=== PATIENT | male | born 1940 | race African-American/Black ===

== ENCOUNTER 2020-08-27 17:49 | Emergency (ER) | payer MEDICARE ==
[2020-08-27 19:13] LABS: Bilirubin Neg (Negative); Blood, Urine 10 (Negative); Glucose, Urine (Dipstick) 250 mg/dL (Negative); Ketone, Urine Negative (Negative); Leukocyte Negative (Negative); Nitrite Negative (Negative); Protein, Urine (Dipstick) 100 mg/dl (Neg-Trace); Urobilinogen Normal mg/dL (Less than 2)
[2020-08-27 19:17] LABS: Clarity Clear (Clear)
[2020-08-27 19:37] LABS: Bacteria/HPF Rare-Few HPF (None Seen); RBC/HPF 0-3 HPF (0-3); Squamous Epithelial 0-3 HPF (0-3); WBC/HPF 0-3 HPF (0-3)
[2020-08-27] MEDS ORDERED: Morphine 2 MG/ML VIAL ONE (20:13)
[2020-08-27 20:29] LABS: #Eosinphils 0.2 10x3/uL (0.0-0.5); #Monocytes 0.1 10x3/uL (0.0-1.1); #Neutrophils 3.7 10x3/uL (1.5-8.4); %Basophils 0.4 % (0.0-2.0); %Eosinophils 3.9 % (0.0-6.0); %Lymphocytes 24.4 % (18.0-47.0); %Monocytes 2.6 % (0.0-10.0); %Neutrophils 68.3 % (40.0-75.0); Hemoglobin 9.1 g/dL (13.5-17.5); Mean Corpuscular Hemoglobin 37.3 pg (27.0-33.0); Mean Corpuscular Volume 109.8 fl (81.2-95.1); Mean Platelet Volume 9.8 fl (7.4-10.4); Platelet Count 178 10x3/uL (150-450); RBC Distribution Width 13.2 % (11.5-14.5); Red Blood Cell (RBC) Count 2.44 10x6/uL (4.32-5.72); White Blood Cell (WBC) Count 5.4 10x3/uL (3.5-10.5)
[2020-08-27 20:33] LABS: ALT (SGPT) 8 U/L (8-55); AST (SGOT) 14 U/L (5-34); Albumin 4.3 g/dL (3.4-4.8); Alkaline Phosphatase 92 U/L (40-110); Anion Gap 14 mmol/L (10-20); BUN (Urea Nitrogen) 42 mg/dL (8.4-25.7); Bilirubin, Total 0.4 mg/dL (0.2-1.2); Calc. Creatinine Clearance 0 mL/min (70-130); Calcium 9.1 mg/dL (7.8-10.44); Carbon Dioxide 20 mmol/L (23-31); Chloride 111 mmol/L (98-107); Globulin 3.2 g/dL (2.4-3.5); Glucose 193 mg/dL (83-110); Lipase 41 U/L (8-78); Potassium 4.4 mmol/L (3.5-5.1); Protein, Total 7.5 g/dL (5.8-8.1); Sodium 141 mmol/L (136-145)
== END 2020-08-27 21:20 | disposition home or self-care (01) ==
LOC: CSHERS 17:49
DX: R10.9 Unspecified abdominal pain (principal); R11.10 Vomiting, unspecified; I11.0 Hypertensive heart disease with heart failure; I50.9 Heart failure, unspecified; E78.00 Pure hypercholesterolemia, unspecified; E11.9 Type 2 diabetes mellitus without complications; H40.9 Unspecified glaucoma; F17.200 Nicotine dependence, unspecified, uncomplicated
CPT/HCPCS: 74176; 80053; 83690; 85025; 87086; 96374; 99284; J2270; 81003; 81015

== ENCOUNTER 2021-05-16 09:51 | Inpatient (IN) | payer MEDICARE ==
[2021-05-16] MEDS ORDERED: Ondansetron PF 4 MG/2 ML Vial ONE (10:22)
[2021-05-16 10:30] LABS: #Eosinphils 0.1 10x3/uL (0.0-0.5); #Monocytes 0.6 10x3/uL (0.0-1.1); #Neutrophils 6.1 10x3/uL (1.5-8.4); %Basophils 0.1 % (0.0-2.0); %Eosinophils 1.3 % (0.0-6.0); %Lymphocytes 18.2 % (18.0-47.0); %Monocytes 6.8 % (0.0-10.0); %Neutrophils 73.2 % (40.0-75.0); Hemoglobin 13.1 g/dL (13.5-17.5); Mean Corpuscular HGB CONC 32.9 g/dL (32.0-36.0); Mean Corpuscular Hemoglobin 30.2 pg (27.0-33.0); Mean Corpuscular Volume 91.7 fl (81.2-95.1); Mean Platelet Volume 9.8 fl (7.4-10.4); Platelet Count 158 10x3/uL (150-450); RBC Distribution Width 13.5 % (11.5-14.5); Red Blood Cell (RBC) Count 4.34 10x6/uL (4.32-5.72); White Blood Cell (WBC) Count 8.3 10x3/uL (3.5-10.5)
[2021-05-16] MEDS ORDERED: Acetaminophen 500 MG TAB ONE (10:46)
[2021-05-16 11:27] LABS: ALT (SGPT) 13 U/L (8-55); AST (SGOT) 20 U/L (5-34); Albumin 4.5 g/dL (3.4-4.8); Alkaline Phosphatase 87 U/L (40-110); Anion Gap 16 mmol/L (10-20); BUN (Urea Nitrogen) 20 mg/dL (8.4-25.7); Calc. Creatinine Clearance 0 mL/min (70-130); Calcium 9.4 mg/dL (7.8-10.44); Carbon Dioxide 27 mmol/L (23-31); Chloride 98 mmol/L (98-107); Globulin 3.6 g/dL (2.4-3.5); Glucose 147 mg/dL (83-110); Lipase 46 U/L (8-78); Potassium 4.1 mmol/L (3.5-5.1); Protein, Total 8.1 g/dL (5.8-8.1); Sodium 137 mmol/L (136-145)
[2021-05-16 16:20] VITALS: BMI 34.4
[2021-05-16] MEDS ORDERED: Ondansetron PF 4 MG/2 ML Vial IVP PRN (16:40)
[2021-05-16 17:40] LABS: SARS-CoV-2 NAA Rapid Test Not Detected (NotDetected)
[2021-05-16] MEDS: Sodium Chloride 0.9% 1,000 ML IV SCH (18:08)
[2021-05-16] MEDS ORDERED: Dextrose 5% in Water 1,000 ML IV PRN (18:24)
[2021-05-16] MEDS ORDERED: Dextrose 50% Abboject 50 ML SYRINGE SLOW IVP PRN (18:24)
[2021-05-16] MEDS ORDERED: DorzolamidE/Timolol 2%/0.5% Ophth Soln 10 ml Bottle EA EYE SCH (21:00)
[2021-05-16] MEDS: Heparin 5,000 UNITS/ML VIAL SC SCH (21:07)
[2021-05-16] MEDS: hydrALAZINE 20 MG/ML VIAL SLOW IVP PRN (21:07)
[2021-05-16] MEDS: Acetaminophen 650 MG Suppository PR PRN (21:55)
[2021-05-16] MEDS: Latanoprost 0.005% Ophth Soln 2.5 ml Bottle EA EYE SCH (23:54)
[2021-05-17] MEDS: Brimonidine Tartrate 0.2% Ophth Soln 5 ml Bottle EA EYE SCH ×3 (00:01→21:46)
[2021-05-17] MEDS: Dorzolamide HCl 2% Ophth Soln 10 ml Bottle EA EYE SCH ×3 (00:08→21:55)
[2021-05-17 04:35] LABS: #Eosinphils 0.1 10x3/uL (0.0-0.5); #Monocytes 0.8 10x3/uL (0.0-1.1); #Neutrophils 5.8 10x3/uL (1.5-8.4); %Basophils 0.2 % (0.0-2.0); %Eosinophils 1.2 % (0.0-6.0); %Lymphocytes 16.8 % (18.0-47.0); %Monocytes 10.1 % (0.0-10.0); %Neutrophils 71.3 % (40.0-75.0); Hemoglobin 11.9 g/dL (13.5-17.5); Mean Corpuscular HGB CONC 32.4 g/dL (32.0-36.0); Mean Corpuscular Hemoglobin 30.4 pg (27.0-33.0); Mean Corpuscular Volume 93.6 fl (81.2-95.1); Platelet Count 152 10x3/uL (150-450); RBC Distribution Width 13.3 % (11.5-14.5); Red Blood Cell (RBC) Count 3.92 10x6/uL (4.32-5.72); White Blood Cell (WBC) Count 8.1 10x3/uL (3.5-10.5)
[2021-05-17 04:53] LABS: Anion Gap 16 mmol/L (10-20); BUN (Urea Nitrogen) 35 mg/dL (8.4-25.7); Calc. Creatinine Clearance 17 mL/min (70-130); Calcium 8.6 mg/dL (7.8-10.44); Carbon Dioxide 24 mmol/L (23-31); Chloride 102 mmol/L (98-107); Glucose 123 mg/dL (83-110); Phosphorus 4.9 mg/dL (2.3-4.7); Sodium 138 mmol/L (136-145)
[2021-05-17] MEDS ORDERED: Sodium Chloride 0.9% 1,000 ML ONE (09:21)
[2021-05-17] MEDS: Heparin 5,000 UNITS/ML VIAL SC SCH ×3 (09:30→21:56)
[2021-05-17] MEDS: Pantoprazole 40 MG VIAL IVP SCH (09:30)
[2021-05-17] MEDS: hydrALAZINE 20 MG/ML VIAL SLOW IVP PRN ×2 (09:31→15:24)
[2021-05-17] MEDS: Sodium Chloride 0.9% 1,000 ML IV SCH (09:31)
[2021-05-17] MEDS: Timolol 0.5% Ophth Soln 5 ml Bottle EA EYE SCH ×2 (09:32→21:55)
[2021-05-17] MEDS: Latanoprost 0.005% Ophth Soln 2.5 ml Bottle EA EYE SCH (21:55)
[2021-05-18] MEDS: Sodium Chloride 0.9% 1,000 ML IV SCH ×2 (03:44→18:42)
[2021-05-18 03:51] LABS: #Eosinphils 0.1 10x3/uL (0.0-0.5); #Monocytes 0.5 10x3/uL (0.0-1.1); #Neutrophils 3.9 10x3/uL (1.5-8.4); %Basophils 0.2 % (0.0-2.0); %Eosinophils 2.4 % (0.0-6.0); %Lymphocytes 21.5 % (18.0-47.0); %Monocytes 8.9 % (0.0-10.0); %Neutrophils 66.8 % (40.0-75.0); Hemoglobin 11.2 g/dL (13.5-17.5); Mean Corpuscular HGB CONC 32.8 g/dL (32.0-36.0); Mean Corpuscular Hemoglobin 30.5 pg (27.0-33.0); Mean Corpuscular Volume 92.9 fl (81.2-95.1); Mean Platelet Volume 9.9 fl (7.4-10.4); Platelet Count 148 10x3/uL (150-450); RBC Distribution Width 13.2 % (11.5-14.5); Red Blood Cell (RBC) Count 3.67 10x6/uL (4.32-5.72); White Blood Cell (WBC) Count 5.8 10x3/uL (3.5-10.5)
[2021-05-18] MEDS: hydrALAZINE 20 MG/ML VIAL SLOW IVP PRN (03:55)
[2021-05-18 04:03] LABS: Anion Gap 13 mmol/L (10-20); BUN (Urea Nitrogen) 45 mg/dL (8.4-25.7); Calc. Creatinine Clearance 16 mL/min (70-130); Calcium 8.4 mg/dL (7.8-10.44); Carbon Dioxide 24 mmol/L (23-31); Chloride 105 mmol/L (98-107); Glucose 138 mg/dL (83-110); Potassium 3.8 mmol/L (3.5-5.1); Sodium 138 mmol/L (136-145)
[2021-05-18] MEDS: Pantoprazole 40 MG VIAL IVP SCH (09:06)
[2021-05-18] MEDS: Heparin 5,000 UNITS/ML VIAL SC SCH ×3 (09:06→21:42)
[2021-05-18] MEDS: Acetaminophen 650 MG Suppository PR PRN (10:08)
[2021-05-18] MEDS: Dorzolamide HCl 2% Ophth Soln 10 ml Bottle EA EYE SCH ×2 (13:08→21:41)
[2021-05-18] MEDS: Brimonidine Tartrate 0.2% Ophth Soln 5 ml Bottle EA EYE SCH ×2 (13:08→21:40)
[2021-05-18] MEDS: Timolol 0.5% Ophth Soln 5 ml Bottle EA EYE SCH ×2 (13:09→21:41)
[2021-05-18] MEDS: Latanoprost 0.005% Ophth Soln 2.5 ml Bottle EA EYE SCH (21:42)
[2021-05-18] MEDS ORDERED: Cefepime 1 GM in Sodium Chloride 0.9% 100 ML IVPB SCH (23:15)
[2021-05-19 03:56] LABS: #Eosinphils 0.2 10x3/uL (0.0-0.5); #Neutrophils 4.8 10x3/uL (1.5-8.4); %Basophils 0.4 % (0.0-2.0); %Eosinophils 2.5 % (0.0-6.0); %Lymphocytes 22.3 % (18.0-47.0); %Monocytes 12.8 % (0.0-10.0); %Neutrophils 61.9 % (40.0-75.0); Mean Corpuscular HGB CONC 31.7 g/dL (32.0-36.0); Mean Corpuscular Hemoglobin 29.7 pg (27.0-33.0); Mean Corpuscular Volume 93.5 fl (81.2-95.1); Mean Platelet Volume 10.2 fl (7.4-10.4); Platelet Count 130 10x3/uL (150-450); RBC Distribution Width 13.2 % (11.5-14.5); Red Blood Cell (RBC) Count 3.37 10x6/uL (4.32-5.72); White Blood Cell (WBC) Count 7.7 10x3/uL (3.5-10.5)
[2021-05-19 04:08] LABS: Anion Gap 12 mmol/L (10-20); BUN (Urea Nitrogen) 31 mg/dL (8.4-25.7); Calc. Creatinine Clearance 20 mL/min (70-130); Calcium 8.2 mg/dL (7.8-10.44); Carbon Dioxide 26 mmol/L (23-31); Chloride 103 mmol/L (98-107); Glucose 116 mg/dL (83-110); Potassium 3.7 mmol/L (3.5-5.1); Sodium 137 mmol/L (136-145)
[2021-05-19] MEDS ORDERED: Ferrous Sulfate 325 MG TAB PO SCH (08:30)
[2021-05-19] MEDS: Brimonidine Tartrate 0.2% Ophth Soln 5 ml Bottle EA EYE SCH ×2 (08:34→21:26)
[2021-05-19] MEDS: Heparin 5,000 UNITS/ML VIAL SC SCH ×3 (08:35→21:26)
[2021-05-19] MEDS: Dorzolamide HCl 2% Ophth Soln 10 ml Bottle EA EYE SCH ×2 (08:35→21:26)
[2021-05-19] MEDS: Pantoprazole 40 MG VIAL IVP SCH (08:35)
[2021-05-19] MEDS: Timolol 0.5% Ophth Soln 5 ml Bottle EA EYE SCH ×2 (08:35→21:26)
[2021-05-19] MEDS: Sodium Chloride 0.9% 1,000 ML IV SCH (15:20)
[2021-05-19] MEDS: Ferrous Sulfate 325 MG TAB PO SCH (17:02)
[2021-05-19] MEDS: Latanoprost 0.005% Ophth Soln 2.5 ml Bottle EA EYE SCH (21:26)
[2021-05-19] MEDS ORDERED: Cefepime 0.5 GM in Sodium Chloride 0.9% 100 ML IVPB ONE (23:40)
[2021-05-19] MEDS: CEFEPIME IVPB SCH (23:40)
[2021-05-19] MEDS: ADMIXTURE FEE IVPB SCH (23:40)
[2021-05-19] MEDS: SODIUM CHLORIDE IVPB SCH (23:40)
[2021-05-20] MEDS: Sodium Chloride 0.9% 1,000 ML IV SCH (03:00)
[2021-05-20] MEDS: Acetaminophen 325 MG TAB PO PRN (04:27)
[2021-05-20] MEDS: hydrALAZINE 20 MG/ML VIAL SLOW IVP PRN ×2 (04:36→21:53)
[2021-05-20 05:48] LABS: #Eosinphils 0.2 10x3/uL (0.0-0.5); #Monocytes 0.6 10x3/uL (0.0-1.1); #Neutrophils 3.7 10x3/uL (1.5-8.4); %Basophils 0.5 % (0.0-2.0); %Eosinophils 3.4 % (0.0-6.0); %Lymphocytes 25.7 % (18.0-47.0); %Monocytes 9.9 % (0.0-10.0); %Neutrophils 60.2 % (40.0-75.0); Hemoglobin 11.1 g/dL (13.5-17.5); Mean Corpuscular HGB CONC 33.2 g/dL (32.0-36.0); Mean Corpuscular Hemoglobin 30.1 pg (27.0-33.0); Mean Corpuscular Volume 90.5 fl (81.2-95.1); Mean Platelet Volume 10.4 fl (7.4-10.4); Platelet Count 153 10x3/uL (150-450); RBC Distribution Width 12.9 % (11.5-14.5); Red Blood Cell (RBC) Count 3.69 10x6/uL (4.32-5.72); White Blood Cell (WBC) Count 6.2 10x3/uL (3.5-10.5)
[2021-05-20 05:55] LABS: Anion Gap 14 mmol/L (10-20); BUN (Urea Nitrogen) 36 mg/dL (8.4-25.7); Calc. Creatinine Clearance 21 mL/min (70-130); Calcium 8.5 mg/dL (7.8-10.44); Carbon Dioxide 22 mmol/L (23-31); Chloride 104 mmol/L (98-107); Glucose 130 mg/dL (83-110); Potassium 3.6 mmol/L (3.5-5.1); Sodium 136 mmol/L (136-145)
[2021-05-20] MEDS ORDERED: hydrALAZINE 25 MG TAB PO SCH (07:00)
[2021-05-20] MEDS ORDERED: NIFEdipine XL 30 MG TAB PO SCH (09:00)
[2021-05-20] MEDS: Heparin 5,000 UNITS/ML VIAL SC SCH ×3 (09:47→21:53)
[2021-05-20] MEDS: Dorzolamide HCl 2% Ophth Soln 10 ml Bottle EA EYE SCH ×2 (09:47→21:54)
[2021-05-20] MEDS: Pantoprazole 40 MG VIAL IVP SCH (09:47)
[2021-05-20] MEDS: Ferrous Sulfate 325 MG TAB PO SCH ×2 (09:47→17:25)
[2021-05-20] MEDS: Timolol 0.5% Ophth Soln 5 ml Bottle EA EYE SCH ×2 (09:48→21:54)
[2021-05-20] MEDS: Brimonidine Tartrate 0.2% Ophth Soln 5 ml Bottle EA EYE SCH ×2 (09:48→21:54)
[2021-05-20] MEDS: Latanoprost 0.005% Ophth Soln 2.5 ml Bottle EA EYE SCH (21:55)
[2021-05-20 22:54] LABS: Bilirubin Neg (Negative); Blood, Urine Negative (Negative); Clarity Clear (Clear); Glucose, Urine (Dipstick) Normal (Negative); Ketone, Urine Negative (Negative); Leukocyte Negative (Negative); Nitrite Negative (Negative); Protein, Urine (Dipstick) 100 mg/dl (Neg-Trace); Urobilinogen Normal mg/dL (Less than 2)
[2021-05-20 22:58] LABS: Urine Culture Reflex No No
[2021-05-20] MEDS: SODIUM CHLORIDE IVPB SCH (23:10)
[2021-05-20] MEDS: ADMIXTURE FEE IVPB SCH (23:10)
[2021-05-20] MEDS ORDERED: Cefepime 0.5 GM in Sodium Chloride 0.9% 100 ML IVPB ONE (23:10)
[2021-05-20] MEDS: CEFEPIME IVPB SCH (23:10)
[2021-05-20 23:16] LABS: Bacteria/HPF None Seen HPF (None Seen); RBC/HPF None Seen HPF (0-3); Squamous Epithelial None Seen HPF (0-3); WBC/HPF 0-3 HPF (0-3)
[2021-05-21 04:40] LABS: #Eosinphils 0.1 10x3/uL (0.0-0.5); #Monocytes 0.6 10x3/uL (0.0-1.1); #Neutrophils 2.3 10x3/uL (1.5-8.4); %Basophils 0.5 % (0.0-2.0); %Eosinophils 1.7 % (0.0-6.0); %Lymphocytes 26.8 % (18.0-47.0); %Monocytes 13.6 % (0.0-10.0); %Neutrophils 57.2 % (40.0-75.0); Hemoglobin 10.5 g/dL (13.5-17.5); Mean Corpuscular HGB CONC 33.3 g/dL (32.0-36.0); Mean Platelet Volume 10.4 fl (7.4-10.4); Platelet Count 155 10x3/uL (150-450); RBC Distribution Width 13.1 % (11.5-14.5)
[2021-05-21 04:59] LABS: Anion Gap 12 mmol/L (10-20); BUN (Urea Nitrogen) 35 mg/dL (8.4-25.7); Calc. Creatinine Clearance 21 mL/min (70-130); Calcium 8.3 mg/dL (7.8-10.44); Carbon Dioxide 22 mmol/L (23-31); Chloride 107 mmol/L (98-107); Glucose 113 mg/dL (83-110); Potassium 3.7 mmol/L (3.5-5.1); Sodium 137 mmol/L (136-145)
[2021-05-21] MEDS: hydrALAZINE 20 MG/ML VIAL SLOW IVP PRN (05:15)
[2021-05-21] MEDS: Heparin 5,000 UNITS/ML VIAL SC SCH ×3 (09:44→22:23)
[2021-05-21] MEDS: Pantoprazole 40 MG VIAL IVP SCH (09:44)
[2021-05-21] MEDS: Brimonidine Tartrate 0.2% Ophth Soln 5 ml Bottle EA EYE SCH ×2 (09:45→22:21)
[2021-05-21] MEDS: Ferrous Sulfate 325 MG TAB PO SCH ×2 (09:45→16:40)
[2021-05-21] MEDS: Timolol 0.5% Ophth Soln 5 ml Bottle EA EYE SCH ×2 (09:45→22:22)
[2021-05-21] MEDS: NIFEdipine XL 30 MG TAB PO SCH (09:45)
[2021-05-21] MEDS: Dorzolamide HCl 2% Ophth Soln 10 ml Bottle EA EYE SCH ×2 (09:46→22:22)
[2021-05-21] MEDS: Acetaminophen 325 MG TAB PO PRN (16:40)
[2021-05-21] MEDS: Sodium Chloride 0.9% 1,000 ML IV SCH (16:59)
[2021-05-21] MEDS: Latanoprost 0.005% Ophth Soln 2.5 ml Bottle EA EYE SCH (22:22)
[2021-05-22] MEDS: ADMIXTURE FEE IVPB SCH (00:33)
[2021-05-22] MEDS: CEFEPIME IVPB SCH (00:33)
[2021-05-22] MEDS: SODIUM CHLORIDE IVPB SCH (00:33)
[2021-05-22 05:45] LABS: #Eosinphils 0.1 10x3/uL (0.0-0.5); #Monocytes 0.6 10x3/uL (0.0-1.1); #Neutrophils 1.9 10x3/uL (1.5-8.4); %Basophils 0.7 % (0.0-2.0); %Eosinophils 1.2 % (0.0-6.0); %Monocytes 14.1 % (0.0-10.0); %Neutrophils 45.8 % (40.0-75.0); Hemoglobin 11.2 g/dL (13.5-17.5); Mean Corpuscular HGB CONC 32.6 g/dL (32.0-36.0); Mean Corpuscular Hemoglobin 29.6 pg (27.0-33.0); Mean Corpuscular Volume 90.8 fl (81.2-95.1); Mean Platelet Volume 10.1 fl (7.4-10.4); Platelet Count 135 10x3/uL (150-450); RBC Distribution Width 13.2 % (11.5-14.5); Red Blood Cell (RBC) Count 3.79 10x6/uL (4.32-5.72); White Blood Cell (WBC) Count 4.1 10x3/uL (3.5-10.5)
[2021-05-22 05:59] LABS: Anion Gap 14 mmol/L (10-20); BUN (Urea Nitrogen) 23 mg/dL (8.4-25.7); Calc. Creatinine Clearance 25 mL/min (70-130); Calcium 8.4 mg/dL (7.8-10.44); Carbon Dioxide 23 mmol/L (23-31); Chloride 103 mmol/L (98-107); Glucose 107 mg/dL (83-110); Potassium 3.8 mmol/L (3.5-5.1); Sodium 136 mmol/L (136-145)
[2021-05-22] MEDS: NIFEdipine XL 30 MG TAB PO SCH (06:16)
[2021-05-22] MEDS: Sodium Chloride 0.9% 1,000 ML IV SCH (07:52)
[2021-05-22] MEDS ORDERED: hydrALAZINE 25 MG TAB PO SCH (09:00)
[2021-05-22] MEDS: Pantoprazole 40 MG VIAL IVP SCH (09:40)
[2021-05-22] MEDS: Heparin 5,000 UNITS/ML VIAL SC SCH ×3 (09:40→22:56)
[2021-05-22] MEDS: Brimonidine Tartrate 0.2% Ophth Soln 5 ml Bottle EA EYE SCH ×2 (09:40→22:48)
[2021-05-22] MEDS: Timolol 0.5% Ophth Soln 5 ml Bottle EA EYE SCH ×2 (09:40→22:50)
[2021-05-22] MEDS: Dorzolamide HCl 2% Ophth Soln 10 ml Bottle EA EYE SCH ×2 (09:40→22:49)
[2021-05-22] MEDS: Cyanocobalamin (Vitamin B-12) 1,000 MCG TAB PO SCH (09:41)
[2021-05-22] MEDS: Carvedilol 25 MG TAB PO SCH ×2 (09:41→22:48)
[2021-05-22] MEDS: hydrALAZINE 25 MG TAB PO SCH ×3 (09:41→22:49)
[2021-05-22] MEDS: Ferrous Sulfate 325 MG TAB PO SCH ×2 (09:41→17:17)
[2021-05-22] MEDS: Cefepime 0.5 GM, Admixture Fee 1 EACH in Sodium Chloride 0.9% 100 ML IVPB SCH (20:13)
[2021-05-22] MEDS: Latanoprost 0.005% Ophth Soln 2.5 ml Bottle EA EYE SCH (22:50)
[2021-05-23 05:28] LABS: #Eosinphils 0.2 10x3/uL (0.0-0.5); #Monocytes 0.5 10x3/uL (0.0-1.1); %Basophils 0.7 % (0.0-2.0); %Eosinophils 4.9 % (0.0-6.0); %Lymphocytes 46.9 % (18.0-47.0); %Monocytes 14.7 % (0.0-10.0); %Neutrophils 32.5 % (40.0-75.0); Hemoglobin 9.3 g/dL (13.5-17.5); Mean Corpuscular HGB CONC 32.2 g/dL (32.0-36.0); Mean Corpuscular Hemoglobin 29.5 pg (27.0-33.0); Mean Corpuscular Volume 91.7 fl (81.2-95.1); Mean Platelet Volume 10.4 fl (7.4-10.4); Platelet Count 162 10x3/uL (150-450); RBC Distribution Width 12.9 % (11.5-14.5); Red Blood Cell (RBC) Count 3.15 10x6/uL (4.32-5.72); White Blood Cell (WBC) Count 3.1 10x3/uL (3.5-10.5)
[2021-05-23 05:38] LABS: Anion Gap 14 mmol/L (10-20); BUN (Urea Nitrogen) 30 mg/dL (8.4-25.7); Calc. Creatinine Clearance 21 mL/min (70-130); Calcium 7.9 mg/dL (7.8-10.44); Carbon Dioxide 24 mmol/L (23-31); Chloride 103 mmol/L (98-107); Glucose 105 mg/dL (83-110); Potassium 3.6 mmol/L (3.5-5.1); Sodium 137 mmol/L (136-145)
[2021-05-23] MEDS ORDERED: EPOETIN ALFA-EPBX (ESRD) 4,000 UNIT/ML VIAL SC SCH (09:00)
[2021-05-23] MEDS: Cyanocobalamin (Vitamin B-12) 1,000 MCG TAB PO SCH (10:38)
[2021-05-23] MEDS: NIFEdipine XL 30 MG TAB PO SCH (10:38)
[2021-05-23] MEDS: Ferrous Sulfate 325 MG TAB PO SCH ×2 (10:38→19:13)
[2021-05-23] MEDS: hydrALAZINE 25 MG TAB PO SCH ×3 (10:40→22:00)
[2021-05-23] MEDS: Carvedilol 25 MG TAB PO SCH ×2 (10:41→22:00)
[2021-05-23] MEDS: Acetaminophen 325 MG TAB PO PRN (10:42)
[2021-05-23] MEDS: Dorzolamide HCl 2% Ophth Soln 10 ml Bottle EA EYE SCH ×2 (10:43→21:59)
[2021-05-23] MEDS: Brimonidine Tartrate 0.2% Ophth Soln 5 ml Bottle EA EYE SCH ×2 (10:48→21:59)
[2021-05-23] MEDS: Heparin 5,000 UNITS/ML VIAL SC SCH ×3 (10:52→21:59)
[2021-05-23] MEDS: Timolol 0.5% Ophth Soln 5 ml Bottle EA EYE SCH ×2 (13:13→22:00)
[2021-05-23] MEDS: Sodium Chloride 0.9% 1,000 ML IV SCH ×2 (15:46→15:55)
[2021-05-23] MEDS: Latanoprost 0.005% Ophth Soln 2.5 ml Bottle EA EYE SCH (21:59)
[2021-05-23] MEDS: Cefepime 0.5 GM, Admixture Fee 1 EACH in Sodium Chloride 0.9% 100 ML IVPB SCH (22:00)
[2021-05-24 04:33] LABS: Anion Gap 13 mmol/L (10-20); BUN (Urea Nitrogen) 19 mg/dL (8.4-25.7); Calc. Creatinine Clearance 23 mL/min (70-130); Calcium 7.9 mg/dL (7.8-10.44); Carbon Dioxide 25 mmol/L (23-31); Chloride 102 mmol/L (98-107); Glucose 106 mg/dL (83-110); Potassium 3.8 mmol/L (3.5-5.1); Sodium 136 mmol/L (136-145)
[2021-05-24 05:08] LABS: MDiff Complete? YES
[2021-05-24 05:09] LABS: Hemoglobin 9.8 g/dL (13.5-17.5); Mean Corpuscular HGB CONC 33.4 g/dL (32.0-36.0); Mean Corpuscular Hemoglobin 30.2 pg (27.0-33.0); Mean Corpuscular Volume 90.4 fl (81.2-95.1); Platelet Count 166 10x3/uL (150-450); Red Blood Cell (RBC) Count 3.24 10x6/uL (4.32-5.72); White Blood Cell (WBC) Count 5.4 10x3/uL (3.5-10.5)
[2021-05-24 05:13] LABS: Band 9 % (5-11); Eosinophils 1 % (0-10); Lymphocytes 31 % (21-51); Monocytes 4 % (0-10); Neutrophil 51 % (42-75); Reactive Lymphocytes 3 % (0-10)
[2021-05-24 05:15] LABS: Platelet Morphology Comment Appears Adequate; RBC Morphology Normal
[2021-05-24] MEDS: Ferrous Sulfate 325 MG TAB PO SCH ×2 (09:38→17:26)
[2021-05-24] MEDS: NIFEdipine XL 30 MG TAB PO SCH (09:40)
[2021-05-24] MEDS: Cyanocobalamin (Vitamin B-12) 1,000 MCG TAB PO SCH (09:40)
[2021-05-24] MEDS: hydrALAZINE 25 MG TAB PO SCH ×3 (09:40→21:43)
[2021-05-24] MEDS: Brimonidine Tartrate 0.2% Ophth Soln 5 ml Bottle EA EYE SCH ×2 (09:41→21:39)
[2021-05-24] MEDS: Timolol 0.5% Ophth Soln 5 ml Bottle EA EYE SCH ×2 (09:41→21:40)
[2021-05-24] MEDS: Heparin 5,000 UNITS/ML VIAL SC SCH ×3 (09:41→22:09)
[2021-05-24] MEDS: Carvedilol 25 MG TAB PO SCH ×2 (09:41→21:43)
[2021-05-24] MEDS: Dorzolamide HCl 2% Ophth Soln 10 ml Bottle EA EYE SCH ×2 (09:42→21:39)
[2021-05-24] MEDS ORDERED: [UNRECOGNIZED DRUG - REMARK] IVPB PRN (20:15)
[2021-05-24] MEDS: Latanoprost 0.005% Ophth Soln 2.5 ml Bottle EA EYE SCH (21:39)
[2021-05-24] MEDS: cefTRIAXone\\ROCEPHIN 2 GM in Sodium Chloride 0.9% 100 ML IVPB SCH (21:52)
[2021-05-25 05:29] LABS: Mean Corpuscular HGB CONC 33.7 g/dL (32.0-36.0); Mean Corpuscular Hemoglobin 30.2 pg (27.0-33.0); Mean Corpuscular Volume 89.7 fl (81.2-95.1); Mean Platelet Volume 9.6 fl (7.4-10.4); Platelet Count 169 10x3/uL (150-450); Red Blood Cell (RBC) Count 3.31 10x6/uL (4.32-5.72); White Blood Cell (WBC) Count 3.6 10x3/uL (3.5-10.5)
[2021-05-25 05:43] LABS: Anion Gap 14 mmol/L (10-20); BUN (Urea Nitrogen) 28 mg/dL (8.4-25.7); Calc. Creatinine Clearance 16 mL/min (70-130); Calcium 8.1 mg/dL (7.8-10.44); Carbon Dioxide 24 mmol/L (23-31); Chloride 102 mmol/L (98-107); Glucose 120 mg/dL (83-110); Potassium 3.6 mmol/L (3.5-5.1); Sodium 136 mmol/L (136-145)
[2021-05-25 07:04] LABS: MDiff Complete? YES
[2021-05-25 07:10] LABS: Eosinophils 2 % (0-10); Lymphocytes 50 % (21-51); Metamyelocyte 1 % (0-0); Monocytes 11 % (0-10); Neutrophil 33 % (42-75); Reactive Lymphocytes 3 % (0-10)
[2021-05-25 07:19] LABS: Platelet Morphology Comment Appears Adequate; RBC Morphology Normal
[2021-05-25] MEDS: Heparin 5,000 UNITS/ML VIAL SC SCH ×3 (10:42→22:00)
[2021-05-25] MEDS: Ferrous Sulfate 325 MG TAB PO SCH ×2 (10:43→22:00)
[2021-05-25] MEDS: Carvedilol 25 MG TAB PO SCH ×2 (10:43→21:47)
[2021-05-25] MEDS: hydrALAZINE 25 MG TAB PO SCH ×3 (10:45→21:46)
[2021-05-25] MEDS: NIFEdipine XL 30 MG TAB PO SCH (10:45)
[2021-05-25] MEDS: Cyanocobalamin (Vitamin B-12) 1,000 MCG TAB PO SCH (10:46)
[2021-05-25] MEDS: Brimonidine Tartrate 0.2% Ophth Soln 5 ml Bottle EA EYE SCH ×2 (11:10→21:48)
[2021-05-25] MEDS: Timolol 0.5% Ophth Soln 5 ml Bottle EA EYE SCH ×2 (11:10→21:49)
[2021-05-25] MEDS: Dorzolamide HCl 2% Ophth Soln 10 ml Bottle EA EYE SCH ×2 (11:11→21:49)
[2021-05-25] MEDS: Latanoprost 0.005% Ophth Soln 2.5 ml Bottle EA EYE SCH (21:48)
[2021-05-25] MEDS: cefTRIAXone\\ROCEPHIN 2 GM in Sodium Chloride 0.9% 100 ML IVPB SCH (22:31)
[2021-05-26] MEDS: NIFEdipine XL 30 MG TAB PO SCH (09:08)
[2021-05-26] MEDS: hydrALAZINE 25 MG TAB PO SCH ×3 (09:08→21:59)
[2021-05-26] MEDS: Cyanocobalamin (Vitamin B-12) 1,000 MCG TAB PO SCH (09:08)
[2021-05-26] MEDS: Carvedilol 25 MG TAB PO SCH ×2 (09:08→22:01)
[2021-05-26] MEDS: Ferrous Sulfate 325 MG TAB PO SCH ×2 (09:08→17:54)
[2021-05-26] MEDS: Heparin 5,000 UNITS/ML VIAL SC SCH ×3 (09:10→22:23)
[2021-05-26] MEDS: Dorzolamide HCl 2% Ophth Soln 10 ml Bottle EA EYE SCH ×2 (09:10→22:03)
[2021-05-26] MEDS: Timolol 0.5% Ophth Soln 5 ml Bottle EA EYE SCH ×2 (09:11→22:02)
[2021-05-26] MEDS: Brimonidine Tartrate 0.2% Ophth Soln 5 ml Bottle EA EYE SCH ×2 (09:11→22:02)
[2021-05-26] MEDS: cefTRIAXone\\ROCEPHIN 2 GM in Sodium Chloride 0.9% 100 ML IVPB SCH (22:00)
[2021-05-26] MEDS: Latanoprost 0.005% Ophth Soln 2.5 ml Bottle EA EYE SCH (22:03)
[2021-05-27] MEDS: Cyanocobalamin (Vitamin B-12) 1,000 MCG TAB PO SCH (10:08)
[2021-05-27] MEDS: hydrALAZINE 25 MG TAB PO SCH ×3 (10:08→21:03)
[2021-05-27] MEDS: NIFEdipine XL 30 MG TAB PO SCH (10:09)
[2021-05-27] MEDS: Ferrous Sulfate 325 MG TAB PO SCH ×2 (10:09→18:07)
[2021-05-27] MEDS: Carvedilol 25 MG TAB PO SCH ×2 (10:10→21:03)
[2021-05-27] MEDS: Heparin 5,000 UNITS/ML VIAL SC SCH ×4 (10:10→23:53)
[2021-05-27] MEDS: Timolol 0.5% Ophth Soln 5 ml Bottle EA EYE SCH ×2 (10:11→21:02)
[2021-05-27] MEDS: Dorzolamide HCl 2% Ophth Soln 10 ml Bottle EA EYE SCH ×2 (10:11→20:03)
[2021-05-27] MEDS: Brimonidine Tartrate 0.2% Ophth Soln 5 ml Bottle EA EYE SCH ×2 (10:11→20:36)
[2021-05-27] MEDS: Latanoprost 0.005% Ophth Soln 2.5 ml Bottle EA EYE SCH (19:46)
[2021-05-27] MEDS ORDERED: Sodium Chloride 0.9% 100 ML ONE (23:47)
[2021-05-27] MEDS: cefTRIAXone\\ROCEPHIN 2 GM in Sodium Chloride 0.9% 100 ML IVPB SCH (23:52)
[2021-05-28 08:01] LABS: #Eosinphils 0.2 10x3/uL (0.0-0.5); #Monocytes 0.3 10x3/uL (0.0-1.1); #Neutrophils 2.9 10x3/uL (1.5-8.4); %Basophils 0.2 % (0.0-2.0); %Eosinophils 3.3 % (0.0-6.0); %Lymphocytes 29.1 % (18.0-47.0); %Monocytes 6.5 % (0.0-10.0); %Neutrophils 60.3 % (40.0-75.0); Hemoglobin 10.1 g/dL (13.5-17.5); Mean Corpuscular HGB CONC 33.4 g/dL (32.0-36.0); Mean Corpuscular Hemoglobin 29.9 pg (27.0-33.0); Mean Corpuscular Volume 89.3 fl (81.2-95.1); Platelet Count 215 10x3/uL (150-450); RBC Distribution Width 13.1 % (11.5-14.5); Red Blood Cell (RBC) Count 3.38 10x6/uL (4.32-5.72); White Blood Cell (WBC) Count 4.8 10x3/uL (3.5-10.5)
[2021-05-28 08:13] LABS: Anion Gap 14 mmol/L (10-20); BUN (Urea Nitrogen) 29 mg/dL (8.4-25.7); Calc. Creatinine Clearance 12 mL/min (70-130); Calcium 8.3 mg/dL (7.8-10.44); Carbon Dioxide 23 mmol/L (23-31); Glucose 103 mg/dL (83-110); Potassium 3.3 mmol/L (3.5-5.1); Sodium 135 mmol/L (136-145)
[2021-05-28 08:17] LABS: Chloride 101 mmol/L (98-107)
[2021-05-28] MEDS: Ferrous Sulfate 325 MG TAB PO SCH ×2 (12:14→17:06)
[2021-05-28] MEDS: Carvedilol 25 MG TAB PO SCH ×2 (12:14→21:31)
[2021-05-28] MEDS: Cyanocobalamin (Vitamin B-12) 1,000 MCG TAB PO SCH (12:14)
[2021-05-28] MEDS: NIFEdipine XL 30 MG TAB PO SCH (12:15)
[2021-05-28] MEDS: Heparin 5,000 UNITS/ML VIAL SC SCH ×2 (12:15→23:01)
[2021-05-28] MEDS: hydrALAZINE 25 MG TAB PO SCH ×3 (12:15→21:31)
[2021-05-28] MEDS: Brimonidine Tartrate 0.2% Ophth Soln 5 ml Bottle EA EYE SCH ×2 (14:59→21:32)
[2021-05-28] MEDS: Dorzolamide HCl 2% Ophth Soln 10 ml Bottle EA EYE SCH ×2 (15:00→21:40)
[2021-05-28] MEDS: Timolol 0.5% Ophth Soln 5 ml Bottle EA EYE SCH ×2 (15:00→22:00)
[2021-05-28] MEDS: Acetaminophen 325 MG TAB PO PRN (17:06)
[2021-05-28] MEDS: cefTRIAXone\\ROCEPHIN 2 GM in Sodium Chloride 0.9% 100 ML IVPB SCH (21:31)
[2021-05-28] MEDS: Acetaminophen 650 MG Suppository PR PRN (21:34)
[2021-05-28] MEDS: Latanoprost 0.005% Ophth Soln 2.5 ml Bottle EA EYE SCH (21:47)
[2021-05-29] MEDS ORDERED: Bupivacaine 0.25% HCL 30 ML VIAL ONE (06:48)
[2021-05-29] MEDS ORDERED: EPINEPHrine 1 MG/ML AMP ONE (06:48)
[2021-05-29] MEDS ORDERED: PROPOFOL 20 ML ONE (07:09)
[2021-05-29] MEDS ORDERED: Fentanyl 100 MCG/2 ML VIAL ONE (07:09)
[2021-05-29] MEDS ORDERED: Ondansetron PF 4 MG/2 ML Vial ONE (07:10)
[2021-05-29] MEDS ORDERED: Lidocaine 1% PF 5 ML VIAL ONE (07:10)
[2021-05-29] MEDS ORDERED: ePHEDrine Sulfate 50 MG/10 ML VIAL ONE (07:43)
[2021-05-29] MEDS ORDERED: PHENYLEPHRINE-NS 100 MCG/ML 10 ML SYRINGE ONE (07:49)
[2021-05-29] MEDS ORDERED: Glycopyrrolate 0.2 MG/ML 5 ML SYRINGE ONE (07:49)
[2021-05-29] MEDS ORDERED: HYDROcodone/Acetaminophen 5/325 mg Tablet PO PRN (11:16)
[2021-05-29] MEDS: Cyanocobalamin (Vitamin B-12) 1,000 MCG TAB PO SCH (11:46)
[2021-05-29] MEDS: Ferrous Sulfate 325 MG TAB PO SCH ×2 (11:46→18:06)
[2021-05-29] MEDS: Timolol 0.5% Ophth Soln 5 ml Bottle EA EYE SCH (11:46)
[2021-05-29] MEDS: Dorzolamide HCl 2% Ophth Soln 10 ml Bottle EA EYE SCH (11:47)
[2021-05-29] MEDS: Brimonidine Tartrate 0.2% Ophth Soln 5 ml Bottle EA EYE SCH (11:47)
[2021-05-29] MEDS: Heparin 5,000 UNITS/ML VIAL SC SCH ×2 (11:50→15:39)
[2021-05-29] MEDS: hydrALAZINE 25 MG TAB PO SCH ×2 (11:50→15:06)
[2021-05-29] MEDS: Carvedilol 25 MG TAB PO SCH (11:50)
[2021-05-29] MEDS: NIFEdipine XL 30 MG TAB PO SCH (11:51)
[2021-05-29] MEDS: Acetaminophen 325 MG TAB PO PRN (15:15)
[2021-05-29] MEDS ORDERED: Gentamicin Sulfate 100 MG in Premix Bag 1 BAG IVPB SCH (15:30)
[2021-05-29 16:29] VITALS: BP 173/80; TEMP 97.3
== END 2021-05-29 17:09 | disposition home or self-care (01) | DRG 388 ==
LOC: CSHERS 09:51 → OBSVTOIN 15:01 → INTOOBSV 15:01 → CSHTELE 15:01 → OBSVTOIN 05-20 07:14
PROVIDERS: ADMIT Internal Medicine; ATTEND Internal Medicine
PROC: 5A1D70Z Performance of Urinary Filtration, Intermittent, Less than 6 Hours Per Day (ICD-10-PCS; 2021-05-25)
PROC: 02HV33Z Insertion of Infusion Device into Superior Vena Cava, Percutaneous Approach (ICD-10-PCS; principal; 2021-05-29)
PROC: B5181ZA Fluoroscopy of Superior Vena Cava using Low Osmolar Contrast, Guidance (ICD-10-PCS; 2021-05-29)
PROC: B548ZZA Ultrasonography of Superior Vena Cava, Guidance (ICD-10-PCS; 2021-05-29)
PROC: 02PYX3Z Removal of Infusion Device from Great Vessel, External Approach (ICD-10-PCS; 2021-05-29)
DX: K56.600 Partial intestinal obstruction, unspecified as to cause (principal); N18.6 End stage renal disease; T82.7XXA Infection and inflammatory reaction due to other cardiac and vascular devices, implants and grafts, initial encounter; I13.2 Hypertensive heart and chronic kidney disease with heart failure and with stage 5 chronic kidney disease, or end stage renal disease; I50.32 Chronic diastolic (congestive) heart failure; Z20.822 Contact with and (suspected) exposure to COVID-19; F03.90 Unspecified dementia, unspecified severity, without behavioral disturbance, psychotic disturbance, mood disturbance, and anxiety; E11.22 Type 2 diabetes mellitus with diabetic chronic kidney disease; R78.89 Finding of other specified substances, not normally found in blood; N40.0 Benign prostatic hyperplasia without lower urinary tract symptoms; Y83.8 Other surgical procedures as the cause of abnormal reaction of the patient, or of later complication, without mention of misadventure at the time of the procedure; E11.42 Type 2 diabetes mellitus with diabetic polyneuropathy; H54.62 Unqualified visual loss, left eye, normal vision right eye; H40.9 Unspecified glaucoma; K21.9 Gastro-esophageal reflux disease without esophagitis; F09 Unspecified mental disorder due to known physiological condition; B96.20 Unspecified Escherichia coli [E. coli] as the cause of diseases classified elsewhere; B96.1 Klebsiella pneumoniae [K. pneumoniae] as the cause of diseases classified elsewhere; K44.9 Diaphragmatic hernia without obstruction or gangrene; K57.30 Diverticulosis of large intestine without perforation or abscess without bleeding; E11.21 Type 2 diabetes mellitus with diabetic nephropathy; I25.10 Atherosclerotic heart disease of native coronary artery without angina pectoris; E66.9 Obesity, unspecified; D63.1 Anemia in chronic kidney disease; Z79.82 Long term (current) use of aspirin; Z79.899 Other long term (current) drug therapy; Z91.018 Allergy to other foods; Z99.2 Dependence on renal dialysis; Z79.4 Long term (current) use of insulin; Z98.41 Cataract extraction status, right eye; Z98.42 Cataract extraction status, left eye; Z87.891 Personal history of nicotine dependence; I25.2 Old myocardial infarction
CPT/HCPCS: 0240U; 36415; 36416; 71045; 72148; 74176; 74220; 76000; 80048; 80053; 81001; 83690; 83735; 83880; 84100; 85025; 87040; 87045; 87046; 87077; 87086; 87149; 87186; 87427; 87449; 90935; 93005; 93306; 94760; 96372; 96374; 96375; 96376; C1752; C9113; G0257; G0378; J0171; J0360; J0692; J0696; J1580; J1642; J1644; J2405; J2704; J3010; J3490; J7050; S0020

== ENCOUNTER 2021-06-02 03:01 | Emergency (ER) | payer MEDICARE ==
[2021-06-02 05:11] LABS: #Eosinphils 0.1 10x3/uL (0.0-0.5); #Monocytes 0.6 10x3/uL (0.0-1.1); #Neutrophils 7.9 10x3/uL (1.5-8.4); %Basophils 0.3 % (0.0-2.0); %Eosinophils 1.3 % (0.0-6.0); %Lymphocytes 16.9 % (18.0-47.0); %Monocytes 5.8 % (0.0-10.0); %Neutrophils 75.1 % (40.0-75.0); Hemoglobin 9.5 g/dL (13.5-17.5); Mean Corpuscular HGB CONC 32.2 g/dL (32.0-36.0); Mean Corpuscular Hemoglobin 29.5 pg (27.0-33.0); Mean Corpuscular Volume 91.6 fl (81.2-95.1); Mean Platelet Volume 9.9 fl (7.4-10.4); Platelet Count 267 10x3/uL (150-450); RBC Distribution Width 13.2 % (11.5-14.5); Red Blood Cell (RBC) Count 3.22 10x6/uL (4.32-5.72); White Blood Cell (WBC) Count 10.5 10x3/uL (3.5-10.5)
[2021-06-02 05:19] LABS: ALT (SGPT) 7 U/L (8-55); AST (SGOT) 14 U/L (5-34); Albumin 3.8 g/dL (3.4-4.8); Alkaline Phosphatase 57 U/L (40-110); Anion Gap 16 mmol/L (10-20); BUN (Urea Nitrogen) 17 mg/dL (8.4-25.7); Bilirubin, Total 0.6 mg/dL (0.2-1.2); Calc. Creatinine Clearance 0 mL/min (70-130); Calcium 8.8 mg/dL (7.8-10.44); Carbon Dioxide 24 mmol/L (23-31); Chloride 99 mmol/L (98-107); Globulin 3.6 g/dL (2.4-3.5); Glucose 155 mg/dL (83-110); Potassium 3.2 mmol/L (3.5-5.1); Protein, Total 7.4 g/dL (5.8-8.1); Sodium 136 mmol/L (136-145)
[2021-06-02 05:41] LABS: CKMB 0.6 ng/mL (0-6.6)
== END 2021-06-02 09:07 | disposition home or self-care (01) ==
LOC: CSHERS 03:01
DX: K62.89 Other specified diseases of anus and rectum (principal); R06.6 Hiccough; I11.0 Hypertensive heart disease with heart failure; I50.9 Heart failure, unspecified; E11.9 Type 2 diabetes mellitus without complications; E78.00 Pure hypercholesterolemia, unspecified; F17.200 Nicotine dependence, unspecified, uncomplicated; Z79.82 Long term (current) use of aspirin; Z79.899 Other long term (current) drug therapy
CPT/HCPCS: 74176; 80053; 82553; 84484; 85025; 87324; 87449; 87493; 93005

== ENCOUNTER 2021-10-30 12:26 | Inpatient (IN) | payer MEDICARE ==
[2021-10-30] MEDS ORDERED: Cefepime 2 GM VIAL ONE (12:49)
[2021-10-30] MEDS ORDERED: Acetaminophen 500 MG TAB ONE (12:50)
[2021-10-30] MEDS ORDERED: Vancomycin HCl 500 MG VIAL ONE (12:50)
[2021-10-30 14:07] LABS: Bilirubin 1+ (Negative); Blood, Urine 10 (Negative); Clarity Cloudy (Clear); Glucose, Urine (Dipstick) Normal (Negative); Ketone, Urine Negative (Negative); Leukocyte 25 (Negative); Nitrite Negative (Negative); Protein, Urine (Dipstick) 100 mg/dl (Neg-Trace); Urobilinogen Normal mg/dL (Less than 2)
[2021-10-30 14:11] LABS: Bacteria/HPF Rare-Few HPF (None Seen)
[2021-10-30 15:10] LABS: SARS-CoV-2 NAA Rapid Test Not Detected (NotDetected)
[2021-10-30 16:07] LABS: Actual Bicarbonate (HCO3v) 23 mEq/L (22-28); Base Excess -2.5 mEq/L (-2.0 to +3.0); Calcium, Ionized (venous) 1.03 mmol/L (1.16-1.32); Chloride (VBG) 98 mmol/L (98-106); Hemoglobin (Hb) 13.7 g/dL (12.6-17.4); Potassium (VBG) 3.73 mmol/L (3.70-5.30); Puncture Site Other Site; RapidComm Collect By LAB.CB1; Sodium 132.9 mmol/L (133-146); pH (venous) 7.36 (7.32-7.43)
[2021-10-30 16:15] LABS: #Basophils 0.1 10x3/uL (0.0-0.2); #Monocytes 0.6 10x3/uL (0.0-1.1); #Neutrophils 9.6 10x3/uL (1.5-8.4); %Basophils 0.5 % (0.0-2.0); %Eosinophils 0.4 % (0.0-6.0); %Lymphocytes 7.5 % (18.0-47.0); %Monocytes 5.1 % (0.0-10.0); %Neutrophils 86.1 % (40.0-75.0); Hemoglobin 12.8 g/dL (13.5-17.5); Mean Corpuscular HGB CONC 31.4 g/dL (32.0-36.0); Mean Corpuscular Hemoglobin 32.8 pg (27.0-33.0); Mean Corpuscular Volume 104.4 fl (81.2-95.1); Mean Platelet Volume 9.8 fl (7.4-10.4); Platelet Count 88 10x3/uL (150-450); RBC Distribution Width 16.9 % (11.5-14.5); White Blood Cell (WBC) Count 11.2 10x3/uL (3.5-10.5)
[2021-10-30 16:21] LABS: ALT (SGPT) 7 U/L (8-55); AST (SGOT) 16 U/L (5-34); Albumin 3.7 g/dL (3.4-4.8); Alkaline Phosphatase 60 U/L (40-110); Anion Gap 17 mmol/L (10-20); BUN (Urea Nitrogen) 48 mg/dL (8.4-25.7); Bilirubin, Total 0.9 mg/dL (0.2-1.2); Calc. Creatinine Clearance 0 mL/min (70-130); Calcium 8.7 mg/dL (7.8-10.44); Carbon Dioxide 23 mmol/L (23-31); Chloride 99 mmol/L (98-107); Globulin 2.9 g/dL (2.4-3.5); Glucose 150 mg/dL (83-110); Potassium 3.7 mmol/L (3.5-5.1); Protein, Total 6.6 g/dL (5.8-8.1); Sodium 135 mmol/L (136-145)
[2021-10-30] MEDS ORDERED: Ketorolac Tromethamine 30 MG/ML VIAL ONE (17:55)
[2021-10-30] MEDS ORDERED: Acetaminophen 325 MG TAB PO PRN ×2 (19:01→19:04)
[2021-10-30] MEDS ORDERED: Ondansetron PF 4 MG/2 ML Vial IVP PRN (19:01)
[2021-10-30] MEDS ORDERED: Acetaminophen 650 MG Suppository PR PRN (19:01)
[2021-10-30] MEDS ORDERED: Ondansetron ODT 4 MG TAB PO PRN (19:01)
[2021-10-30] MEDS ORDERED: hydrALAZINE 20 MG/ML VIAL SLOW IVP PRN (19:08)
[2021-10-30] MEDS ORDERED: HumaLOG 300 UNITS/3 ML VIAL SC PRN ×2 (19:10)
[2021-10-30] MEDS ORDERED: Dextrose 5% in Water 1,000 ML IV PRN (19:10)
[2021-10-30] MEDS ORDERED: Dextrose 50% Abboject 50 ML SYRINGE SLOW IVP PRN (19:10)
[2021-10-30 19:41] VITALS: BMI 35.5
[2021-10-30] MEDS: Ferrous Sulfate 325 MG TAB PO SCH (20:22)
[2021-10-30] MEDS: Terazosin HCl 1 MG CAP PO SCH (20:22)
[2021-10-30] MEDS ORDERED: Vancomycin Dialysis Sliding Scale (Wt > 99) FS SCH (20:45)
[2021-10-30] MEDS: Latanoprost 0.005% Ophth Soln 2.5 ml Bottle EA EYE SCH (21:55)
[2021-10-30] MEDS ORDERED: Vancomycin 1 GM in Premix Bag 1 BAG IVPB SCH (23:00)
[2021-10-31 04:48] LABS: Anion Gap 22 mmol/L (10-20); BUN (Urea Nitrogen) 61 mg/dL (8.4-25.7); Calc. Creatinine Clearance 7 mL/min (70-130); Calcium 8.7 mg/dL (7.8-10.44); Carbon Dioxide 20 mmol/L (23-31); Chloride 98 mmol/L (98-107); Glucose 160 mg/dL (83-110); Magnesium 2.3 mg/dL (1.6-2.6); Potassium 4.1 mmol/L (3.5-5.1); Sodium 136 mmol/L (136-145)
[2021-10-31 04:52] LABS: #Eosinphils 0.1 10x3/uL (0.0-0.5); #Monocytes 0.5 10x3/uL (0.0-1.1); #Neutrophils 6.1 10x3/uL (1.5-8.4); %Basophils 0.6 % (0.0-2.0); %Eosinophils 0.7 % (0.0-6.0); %Lymphocytes 8.1 % (18.0-47.0); %Monocytes 6.2 % (0.0-10.0); %Neutrophils 84.1 % (40.0-75.0); Hemoglobin 11.9 g/dL (13.5-17.5); Mean Corpuscular HGB CONC 32.5 g/dL (32.0-36.0); Mean Corpuscular Volume 101.4 fl (81.2-95.1); Mean Platelet Volume 11.2 fl (7.4-10.4); Platelet Count 80 10x3/uL (150-450); RBC Distribution Width 16.2 % (11.5-14.5); Red Blood Cell (RBC) Count 3.61 10x6/uL (4.32-5.72); White Blood Cell (WBC) Count 7.3 10x3/uL (3.5-10.5)
[2021-10-31 07:19] LABS: Vancomycin, Random 16.8 ug/mL (See Comment)
[2021-10-31] MEDS: Sevelamer Carbonate 800 MG TAB PO SCH ×3 (09:15→16:55)
[2021-10-31] MEDS ORDERED: Heparin 10,000 UNITS/ 10 ML VIAL FS PRN (10:46)
[2021-10-31] MEDS: Ferrous Sulfate 325 MG TAB PO SCH ×2 (12:09→20:45)
[2021-10-31] MEDS: Folic Acid/Vit B Comp W-C PO SCH (12:09)
[2021-10-31] MEDS: Aspirin 81 mg Enteric Coated Tablet PO SCH (12:09)
[2021-10-31] MEDS: Atorvastatin Calcium 20 MG TAB PO SCH (12:09)
[2021-10-31] MEDS: Cyanocobalamin (Vitamin B-12) 1,000 MCG TAB PO SCH (12:10)
[2021-10-31 13:07] LABS: Hemoglobin A1c 5.5 % (4.0-6.0)
[2021-10-31] MEDS: Cefepime 0.5 GM in Sodium Chloride 0.9% 100 ML IVPB SCH (13:42)
[2021-10-31] MEDS ORDERED: Vancomycin HCl 500 MG in Sodium Chloride 0.9% 100 ML IVPB SCH (17:00)
[2021-10-31] MEDS: Terazosin HCl 1 MG CAP PO SCH (20:46)
[2021-10-31] MEDS: Latanoprost 0.005% Ophth Soln 2.5 ml Bottle EA EYE SCH (20:46)
[2021-10-31] MEDS: Timolol 0.5% Ophth Soln 5 ml Bottle EA EYE SCH (20:48)
[2021-10-31] MEDS: Dorzolamide HCl 2% Ophth Soln 10 ml Bottle EA EYE SCH (20:48)
[2021-10-31] MEDS ORDERED: DorzolamidE/Timolol 2%/0.5% Ophth Soln 10 ml Bottle EA EYE SCH (21:00)
[2021-11-01 03:59] LABS: Actual Bicarbonate (HCO3v) 25 mEq/L (22-28); Base Excess 0.2 mEq/L (-2.0 to +3.0); Calcium, Ionized (venous) 1.07 mmol/L (1.16-1.32); Chloride (VBG) 98 mmol/L (98-106); Hemoglobin (Hb) 12.5 g/dL (12.6-17.4); Potassium (VBG) 3.82 mmol/L (3.70-5.30); Puncture Site Other Site; RapidComm Collect By LAB.YY; Sodium 131.6 mmol/L (133-146); pH (venous) 7.42 (7.32-7.43)
[2021-11-01 04:01] LABS: #Eosinphils 0.1 10x3/uL (0.0-0.5); #Monocytes 0.5 10x3/uL (0.0-1.1); %Basophils 0.6 % (0.0-2.0); %Eosinophils 2.8 % (0.0-6.0); %Monocytes 11.7 % (0.0-10.0); %Neutrophils 65.5 % (40.0-75.0); Hemoglobin 11.7 g/dL (13.5-17.5); Mean Corpuscular HGB CONC 32.5 g/dL (32.0-36.0); Mean Corpuscular Hemoglobin 32.4 pg (27.0-33.0); Mean Corpuscular Volume 99.7 fl (81.2-95.1); Mean Platelet Volume 11.1 fl (7.4-10.4); Platelet Count 78 10x3/uL (150-450); RBC Distribution Width 15.9 % (11.5-14.5); Red Blood Cell (RBC) Count 3.61 10x6/uL (4.32-5.72); White Blood Cell (WBC) Count 4.6 10x3/uL (3.5-10.5)
[2021-11-01 04:03] LABS: Lactic Acid 0.7 mmol/L (0.5-2.2)
[2021-11-01 04:07] LABS: ALT (SGPT) 15 U/L (8-55); AST (SGOT) 34 U/L (5-34); Albumin 3.3 g/dL (3.4-4.8); Alkaline Phosphatase 53 U/L (40-110); Anion Gap 20 mmol/L (10-20); BUN (Urea Nitrogen) 46 mg/dL (8.4-25.7); Bilirubin, Total 0.7 mg/dL (0.2-1.2); CRP (Inflammatory) 31.76 mg/dL (= or < 0.5); Calc. Creatinine Clearance 9 mL/min (70-130); Calcium 9.1 mg/dL (7.8-10.44); Carbon Dioxide 21 mmol/L (23-31); Cardiac Risk 3.9 (Less than 4.5); Chloride 98 mmol/L (98-107); Cholesterol 105 mg/dl (< 200 Desired); Globulin 3.1 g/dL (2.4-3.5); Glucose 119 mg/dL (83-110); HDL Cholesterol 27 mg/dL (>60 Neg Risk); LDL Cholesterol, Calculated 43 mg/dL; Magnesium 2.3 mg/dL (1.6-2.6); Potassium 3.9 mmol/L (3.5-5.1); Protein, Total 6.4 g/dL (5.8-8.1); Sodium 135 mmol/L (136-145); Triglycerides 177 mg/dL (Less than 150)
[2021-11-01] MEDS ORDERED: [UNRECOGNIZED DRUG - REMARK] PO SCH (09:00)
[2021-11-01] MEDS: Cyanocobalamin (Vitamin B-12) 1,000 MCG TAB PO SCH (09:50)
[2021-11-01] MEDS: Atorvastatin Calcium 20 MG TAB PO SCH (09:50)
[2021-11-01] MEDS: Sevelamer Carbonate 800 MG TAB PO SCH ×3 (09:50→17:54)
[2021-11-01] MEDS: Aspirin 81 mg Enteric Coated Tablet PO SCH (09:50)
[2021-11-01] MEDS: Dorzolamide HCl 2% Ophth Soln 10 ml Bottle EA EYE SCH ×2 (09:51→21:23)
[2021-11-01] MEDS: Ferrous Sulfate 325 MG TAB PO SCH ×2 (09:51→21:22)
[2021-11-01] MEDS: Folic Acid/Vit B Comp W-C PO SCH (09:59)
[2021-11-01] MEDS: Timolol 0.5% Ophth Soln 5 ml Bottle EA EYE SCH ×2 (10:04→21:22)
[2021-11-01] MEDS: Cefepime 0.5 GM in Sodium Chloride 0.9% 100 ML IVPB SCH (13:37)
[2021-11-01] MEDS: Latanoprost 0.005% Ophth Soln 2.5 ml Bottle EA EYE SCH (21:22)
[2021-11-02] MEDS: Sevelamer Carbonate 800 MG TAB PO SCH ×3 (08:36→20:53)
[2021-11-02] MEDS: Cyanocobalamin (Vitamin B-12) 1,000 MCG TAB PO SCH (08:37)
[2021-11-02] MEDS: Folic Acid/Vit B Comp W-C PO SCH (08:37)
[2021-11-02] MEDS: Ferrous Sulfate 325 MG TAB PO SCH ×2 (08:37→20:42)
[2021-11-02] MEDS: Atorvastatin Calcium 20 MG TAB PO SCH (08:38)
[2021-11-02] MEDS: Aspirin 81 mg Enteric Coated Tablet PO SCH (08:38)
[2021-11-02] MEDS: Timolol 0.5% Ophth Soln 5 ml Bottle EA EYE SCH ×2 (08:40→20:47)
[2021-11-02] MEDS: Dorzolamide HCl 2% Ophth Soln 10 ml Bottle EA EYE SCH ×2 (08:40→20:46)
[2021-11-02 10:45] LABS: #Eosinphils 0.2 10x3/uL (0.0-0.5); #Monocytes 0.5 10x3/uL (0.0-1.1); #Neutrophils 2.3 10x3/uL (1.5-8.4); %Basophils 0.7 % (0.0-2.0); %Eosinophils 4.1 % (0.0-6.0); %Lymphocytes 25.1 % (18.0-47.0); %Monocytes 13.2 % (0.0-10.0); %Neutrophils 56.7 % (40.0-75.0); Hemoglobin 11.7 g/dL (13.5-17.5); Mean Corpuscular HGB CONC 32.9 g/dL (32.0-36.0); Mean Corpuscular Hemoglobin 32.1 pg (27.0-33.0); Mean Corpuscular Volume 97.5 fl (81.2-95.1); Mean Platelet Volume 11.3 fl (7.4-10.4); Platelet Count 96 10x3/uL (150-450); Red Blood Cell (RBC) Count 3.65 10x6/uL (4.32-5.72); White Blood Cell (WBC) Count 4.1 10x3/uL (3.5-10.5)
[2021-11-02 11:03] LABS: ALT (SGPT) 14 U/L (8-55); AST (SGOT) 25 U/L (5-34); Albumin 3.4 g/dL (3.4-4.8); Alkaline Phosphatase 51 U/L (40-110); Anion Gap 20 mmol/L (10-20); BUN (Urea Nitrogen) 49 mg/dL (8.4-25.7); Bilirubin, Total 0.6 mg/dL (0.2-1.2); Calc. Creatinine Clearance 9 mL/min (70-130); Calcium 8.6 mg/dL (7.8-10.44); Carbon Dioxide 23 mmol/L (23-31); Chloride 96 mmol/L (98-107); Glucose 154 mg/dL (83-110); Magnesium 2.2 mg/dL (1.6-2.6); Potassium 3.6 mmol/L (3.5-5.1); Protein, Total 6.4 g/dL (5.8-8.1); Sodium 135 mmol/L (136-145)
[2021-11-02] MEDS: Cefepime 0.5 GM in Sodium Chloride 0.9% 100 ML IVPB SCH (14:15)
[2021-11-02] MEDS ORDERED: Vancomycin HCl 750 MG in Sodium Chloride 0.9% 250 ML 250 ML IVPB SCH ×2 (17:00→20:45)
[2021-11-02] MEDS: Latanoprost 0.005% Ophth Soln 2.5 ml Bottle EA EYE SCH (20:46)
[2021-11-03 04:21] LABS: #Eosinphils 0.2 10x3/uL (0.0-0.5); #Monocytes 0.7 10x3/uL (0.0-1.1); #Neutrophils 2.8 10x3/uL (1.5-8.4); %Basophils 0.8 % (0.0-2.0); %Eosinophils 3.2 % (0.0-6.0); %Lymphocytes 27.7 % (18.0-47.0); %Monocytes 13.2 % (0.0-10.0); %Neutrophils 54.9 % (40.0-75.0); Hemoglobin 12.2 g/dL (13.5-17.5); Mean Corpuscular HGB CONC 33.3 g/dL (32.0-36.0); Mean Corpuscular Hemoglobin 32.1 pg (27.0-33.0); Mean Corpuscular Volume 96.3 fl (81.2-95.1); Mean Platelet Volume 11.2 fl (7.4-10.4); Platelet Count 94 10x3/uL (150-450); RBC Distribution Width 15.9 % (11.5-14.5); White Blood Cell (WBC) Count 5.1 10x3/uL (3.5-10.5)
[2021-11-03 04:33] LABS: ALT (SGPT) 14 U/L (8-55); AST (SGOT) 19 U/L (5-34); Albumin 3.4 g/dL (3.4-4.8); Alkaline Phosphatase 67 U/L (40-110); Anion Gap 19 mmol/L (10-20); BUN (Urea Nitrogen) 36 mg/dL (8.4-25.7); Bilirubin, Total 0.5 mg/dL (0.2-1.2); Calc. Creatinine Clearance 11 mL/min (70-130); Calcium 8.5 mg/dL (7.8-10.44); Carbon Dioxide 22 mmol/L (23-31); Chloride 99 mmol/L (98-107); Globulin 3.1 g/dL (2.4-3.5); Glucose 159 mg/dL (83-110); Magnesium 2.2 mg/dL (1.6-2.6); Potassium 3.5 mmol/L (3.5-5.1); Protein, Total 6.5 g/dL (5.8-8.1); Sodium 136 mmol/L (136-145)
[2021-11-03] MEDS: Sevelamer Carbonate 800 MG TAB PO SCH ×3 (09:38→17:05)
[2021-11-03] MEDS: Aspirin 81 mg Enteric Coated Tablet PO SCH (09:38)
[2021-11-03] MEDS: Cyanocobalamin (Vitamin B-12) 1,000 MCG TAB PO SCH (09:39)
[2021-11-03] MEDS: Folic Acid/Vit B Comp W-C PO SCH (09:39)
[2021-11-03] MEDS: Atorvastatin Calcium 20 MG TAB PO SCH (09:39)
[2021-11-03] MEDS: Ferrous Sulfate 325 MG TAB PO SCH ×2 (09:39→21:02)
[2021-11-03] MEDS: Timolol 0.5% Ophth Soln 5 ml Bottle EA EYE SCH ×2 (09:40→21:04)
[2021-11-03] MEDS: Dorzolamide HCl 2% Ophth Soln 10 ml Bottle EA EYE SCH ×2 (09:41→21:02)
[2021-11-03] MEDS: Cefepime 0.5 GM in Sodium Chloride 0.9% 100 ML IVPB SCH (13:55)
[2021-11-03] MEDS: Latanoprost 0.005% Ophth Soln 2.5 ml Bottle EA EYE SCH (21:04)
[2021-11-04] MEDS: Sevelamer Carbonate 800 MG TAB PO SCH (09:14)
[2021-11-04] MEDS: Cyanocobalamin (Vitamin B-12) 1,000 MCG TAB PO SCH (09:15)
[2021-11-04] MEDS: Atorvastatin Calcium 20 MG TAB PO SCH (09:15)
[2021-11-04] MEDS: Aspirin 81 mg Enteric Coated Tablet PO SCH (09:15)
[2021-11-04] MEDS: Dorzolamide HCl 2% Ophth Soln 10 ml Bottle EA EYE SCH (09:15)
[2021-11-04] MEDS: Ferrous Sulfate 325 MG TAB PO SCH (09:15)
[2021-11-04] MEDS: Timolol 0.5% Ophth Soln 5 ml Bottle EA EYE SCH (09:17)
[2021-11-04] MEDS: Folic Acid/Vit B Comp W-C PO SCH (09:19)
[2021-11-04 12:26] VITALS: BP 162/71; TEMP 97.9
== END 2021-11-04 13:00 | disposition home or self-care (01) | DRG 864 ==
LOC: CSHERS 12:26 → CSHTELE 18:36
PROVIDERS: ADMIT Family Medicine; ATTEND Hospitalist
PROC: 5A1D70Z Performance of Urinary Filtration, Intermittent, Less than 6 Hours Per Day (ICD-10-PCS; principal; 2021-11-02)
DX: R50.9 Fever, unspecified (principal); N18.6 End stage renal disease; I13.2 Hypertensive heart and chronic kidney disease with heart failure and with stage 5 chronic kidney disease, or end stage renal disease; I50.32 Chronic diastolic (congestive) heart failure; N25.81 Secondary hyperparathyroidism of renal origin; E87.2 Acidosis; E11.22 Type 2 diabetes mellitus with diabetic chronic kidney disease; E78.00 Pure hypercholesterolemia, unspecified; E78.5 Hyperlipidemia, unspecified; N40.0 Benign prostatic hyperplasia without lower urinary tract symptoms; E11.51 Type 2 diabetes mellitus with diabetic peripheral angiopathy without gangrene; M10.9 Gout, unspecified; M19.90 Unspecified osteoarthritis, unspecified site; D63.1 Anemia in chronic kidney disease; D69.6 Thrombocytopenia, unspecified; G47.33 Obstructive sleep apnea (adult) (pediatric); Z20.822 Contact with and (suspected) exposure to COVID-19; I25.10 Atherosclerotic heart disease of native coronary artery without angina pectoris; F03.90 Unspecified dementia, unspecified severity, without behavioral disturbance, psychotic disturbance, mood disturbance, and anxiety; Z99.2 Dependence on renal dialysis; Z91.018 Allergy to other foods; Z79.82 Long term (current) use of aspirin; Z79.899 Other long term (current) drug therapy; Z79.4 Long term (current) use of insulin
CPT/HCPCS: 36415; 36416; 71045; 71260; 74177; 80048; 80053; 80061; 80202; 81003; 81015; 82805; 83036; 83605; 83735; 84100; 84443; 85025; 86140; 87040; 87081; 87086; 87804; 90935; 94760; G0257; J0692; J1644; J1815; J1885; J3370; J3490; J7050; U0002

== ENCOUNTER 2021-12-20 11:47 | Emergency (ER) | payer MEDICARE ==
[2021-12-20] MEDS ORDERED: Iopamidol 300 61% 100 ML VIAL FS ONE (12:00)
[2021-12-20] MEDS ORDERED: Ondansetron PF 4 MG/2 ML Vial ONE (12:47)
[2021-12-20 13:12] LABS: #Basophils 0.1 10x3/uL (0.0-0.2); #Monocytes 0.4 10x3/uL (0.0-1.1); #Neutrophils 6.6 10x3/uL (1.5-8.4); %Basophils 0.6 % (0.0-2.0); %Eosinophils 0.3 % (0.0-6.0); %Lymphocytes 18.4 % (18.0-47.0); %Monocytes 4.2 % (0.0-10.0); %Neutrophils 76.2 % (40.0-75.0); Hemoglobin 11.4 g/dL (13.5-17.5); Mean Corpuscular Hemoglobin 32.3 pg (27.0-33.0); Mean Corpuscular Volume 97.7 fl (81.2-95.1); Mean Platelet Volume 9.7 fl (7.4-10.4); Platelet Count 121 10x3/uL (150-450); RBC Distribution Width 14.8 % (11.5-14.5); Red Blood Cell (RBC) Count 3.53 10x6/uL (4.32-5.72); White Blood Cell (WBC) Count 8.7 10x3/uL (3.5-10.5)
[2021-12-20 13:23] LABS: ALT (SGPT) 8 U/L (8-55); AST (SGOT) 17 U/L (5-34); Albumin 4.2 g/dL (3.4-4.8); Alkaline Phosphatase 96 U/L (40-110); Anion Gap 20 mmol/L (10-20); BUN (Urea Nitrogen) 28 mg/dL (8.4-25.7); Bilirubin, Total 0.7 mg/dL (0.2-1.2); CK (CPK) 44 U/L (30-200); Calc. Creatinine Clearance 0 mL/min (70-130); Calcium 9.7 mg/dL (7.8-10.44); Carbon Dioxide 26 mmol/L (23-31); Chloride 96 mmol/L (98-107); Estimated GFR 7; Globulin 3.1 g/dL (2.4-3.5); Glucose 259 mg/dL (83-110); Lipase 46 U/L (8-78); Protein, Total 7.3 g/dL (5.8-8.1); Sodium 138 mmol/L (136-145)
[2021-12-20] MEDS ORDERED: Morphine 2 MG/ML VIAL ONE (13:48)
== END 2021-12-20 17:20 | disposition home or self-care (01) ==
LOC: CSHERS 11:47
DX: R11.2 Nausea with vomiting, unspecified (principal); I13.2 Hypertensive heart and chronic kidney disease with heart failure and with stage 5 chronic kidney disease, or end stage renal disease; E11.22 Type 2 diabetes mellitus with diabetic chronic kidney disease; N18.6 End stage renal disease; I50.9 Heart failure, unspecified; E78.00 Pure hypercholesterolemia, unspecified; F17.200 Nicotine dependence, unspecified, uncomplicated; Z99.2 Dependence on renal dialysis
CPT/HCPCS: 74177; 76705; 80053; 82550; 83605; 83690; 84484; 85025; 93005; 96374; 96375; 99284; J2270; J2405; Q9967

== ENCOUNTER 2022-04-05 10:27 | Emergency (ER) | payer MEDICARE ==
[2022-04-05] MEDS ORDERED: Tranexamic Acid 1,000 MG/10 ML VIAL ONE (12:34)
== END 2022-04-05 13:30 | disposition home or self-care (01) ==
LOC: CSHERS 10:27
DX: T82.9XXA Unspecified complication of cardiac and vascular prosthetic device, implant and graft, initial encounter (principal); I13.2 Hypertensive heart and chronic kidney disease with heart failure and with stage 5 chronic kidney disease, or end stage renal disease; I50.9 Heart failure, unspecified; E11.22 Type 2 diabetes mellitus with diabetic chronic kidney disease; N18.6 End stage renal disease; F17.200 Nicotine dependence, unspecified, uncomplicated; E78.00 Pure hypercholesterolemia, unspecified; Z99.2 Dependence on renal dialysis
CPT/HCPCS: 71045

== ENCOUNTER 2022-04-29 17:38 | Emergency (ER) | payer MEDICARE ==
[2022-04-29] MEDS ORDERED: Acetaminophen 500 MG TAB ONE (18:49)
[2022-04-29 19:39] LABS: ALT (SGPT) 25 U/L (8-55); AST (SGOT) 40 U/L (5-34); Albumin 3.9 g/dL (3.4-4.8); Alkaline Phosphatase 61 U/L (40-110); Anion Gap 19 mmol/L (10-20); BUN (Urea Nitrogen) 30 mg/dL (8.4-25.7); Bilirubin, Total 0.7 mg/dL (0.2-1.2); Calc. Creatinine Clearance 0 mL/min (70-130); Calcium 8.8 mg/dL (7.8-10.44); Carbon Dioxide 25 mmol/L (23-31); Chloride 94 mmol/L (98-107); Estimated GFR 7; Globulin 2.7 g/dL (2.4-3.5); Glucose 136 mg/dL (83-110); Potassium 4.3 mmol/L (3.5-5.1); Protein, Total 6.6 g/dL (5.8-8.1); Sodium 134 mmol/L (136-145)
[2022-04-29 19:47] LABS: SARS-CoV-2 NAA Rapid Test Not Detected (NotDetected)
[2022-04-29 19:55] LABS: #Eosinphils 0.1 10x3/uL (0.0-0.5); #Monocytes 0.7 10x3/uL (0.0-1.1); #Neutrophils 3.8 10x3/uL (1.5-8.4); %Basophils 0.7 % (0.0-2.0); %Eosinophils 1.8 % (0.0-6.0); %Lymphocytes 23.6 % (18.0-47.0); %Neutrophils 61.7 % (40.0-75.0); Hemoglobin 9.7 g/dL (13.5-17.5); Mean Corpuscular HGB CONC 33.7 g/dL (32.0-36.0); Platelet Count 114 10x3/uL (150-450); RBC Distribution Width 13.8 % (11.5-14.5); Red Blood Cell (RBC) Count 2.94 10x6/uL (4.32-5.72); White Blood Cell (WBC) Count 6.1 10x3/uL (3.5-10.5)
[2022-04-29 19:59] LABS: CKMB 0.5 ng/mL (0-6.6)
[2022-04-29] MEDS ORDERED: Oseltamivir 6 MG/ML ORAL SUSP PO SCH (20:15)
== END 2022-04-29 23:56 | disposition home or self-care (01) ==
LOC: CSHERS 17:38
DX: J10.1 Influenza due to other identified influenza virus with other respiratory manifestations (principal); E11.22 Type 2 diabetes mellitus with diabetic chronic kidney disease; I13.2 Hypertensive heart and chronic kidney disease with heart failure and with stage 5 chronic kidney disease, or end stage renal disease; N18.6 End stage renal disease; Z99.2 Dependence on renal dialysis; F17.200 Nicotine dependence, unspecified, uncomplicated; E78.00 Pure hypercholesterolemia, unspecified; Z20.822 Contact with and (suspected) exposure to COVID-19
CPT/HCPCS: 0240U; 71045; 80053; 82553; 83605; 83880; 84484; 85025; 93005; 36415

== ENCOUNTER 2022-08-24 00:41 | Observation (INO) | payer MEDICARE ==
[2022-08-24 01:39] LABS: #Basophils 0.1 10x3/uL (0.0-0.2); #Eosinphils 0.2 10x3/uL (0.0-0.5); #Monocytes 0.7 10x3/uL (0.0-1.1); #Neutrophils 4.2 10x3/uL (1.5-8.4); %Basophils 1.1 % (0.0-2.0); %Eosinophils 3.2 % (0.0-6.0); %Lymphocytes 28.8 % (18.0-47.0); %Monocytes 9.5 % (0.0-10.0); %Neutrophils 57.1 % (40.0-75.0); Hemoglobin 9.8 g/dL (13.5-17.5); Mean Corpuscular HGB CONC 31.2 g/dL (32.0-36.0); Mean Corpuscular Hemoglobin 30.6 pg (27.0-33.0); Mean Corpuscular Volume 98.1 fl (81.2-95.1); Mean Platelet Volume 9.4 fl (7.4-10.4); Platelet Count 192 10x3/uL (150-450); RBC Distribution Width 13.3 % (11.5-14.5); White Blood Cell (WBC) Count 7.4 10x3/uL (3.5-10.5)
[2022-08-24 01:48] LABS: ALT (SGPT) 8 U/L (8-55); AST (SGOT) 13 U/L (5-34); Albumin 4.2 g/dL (3.4-4.8); Alkaline Phosphatase 81 U/L (40-110); Anion Gap 16 mmol/L (10-20); BUN (Urea Nitrogen) 33 mg/dL (8.4-25.7); Bilirubin, Total 0.6 mg/dL (0.2-1.2); Calc. Creatinine Clearance 0 mL/min (70-130); Calcium 9.6 mg/dL (7.8-10.44); Carbon Dioxide 33 mmol/L (23-31); Chloride 93 mmol/L (98-107); Estimated GFR 6; Glucose 141 mg/dL (83-110); Potassium 4.5 mmol/L (3.5-5.1); Protein, Total 7.2 g/dL (5.8-8.1); Sodium 137 mmol/L (136-145)
[2022-08-24] MEDS ORDERED: Acetaminophen 500 MG TAB ONE (02:01)
[2022-08-24] MEDS ORDERED: Calcium Carbonate 500 MG ChewTAB PO PRN (05:29)
[2022-08-24] MEDS ORDERED: Ondansetron PF 4 MG/2 ML Vial IVP PRN (05:29)
[2022-08-24] MEDS ORDERED: Senokot S 8.6-50 MG TAB PO PRN (05:29)
[2022-08-24] MEDS ORDERED: Acetaminophen 325 MG TAB PO PRN (05:29)
[2022-08-24] MEDS ORDERED: Guaifenesin DM 100-10/5 ML UDCUP PO PRN (05:29)
[2022-08-24] MEDS ORDERED: Nitroglycerin 0.4 MG TAB (25 Tab Bottle) SL PRN (05:30)
[2022-08-24] MEDS ORDERED: HumaLOG 300 UNITS/3 ML VIAL SC PRN (05:43)
[2022-08-24] MEDS ORDERED: Dextrose 50% Abboject 50 ML SYRINGE SLOW IVP PRN (05:43)
[2022-08-24] MEDS ORDERED: Dextrose 5% in Water 1,000 ML IV PRN (05:43)
[2022-08-24] MEDS ORDERED: Clopidogrel Bisulfate 75 MG TAB ONE (08:53)
[2022-08-24] MEDS ORDERED: Aspirin Chewable 81 MG TAB ONE (08:53)
[2022-08-24] MEDS ORDERED: Heparin 5,000 UNITS/ML VIAL ONE (08:54)
[2022-08-24] MEDS ORDERED: Folic Acid 1 MG TAB ONE (08:54)
[2022-08-24] MEDS ORDERED: Cholecalciferol 1,000 UNITS (25 MCG) TAB ONE (08:56)
[2022-08-24] MEDS ORDERED: Carvedilol 25 MG TAB ONE (08:57)
[2022-08-24] MEDS ORDERED: hydrALAZINE 25 MG TAB PO SCH (09:00)
[2022-08-24] MEDS ORDERED: Ferrous Sulfate 325 MG TAB PO SCH (09:00)
[2022-08-24] MEDS ORDERED: Docusate 100 MG CAP PO SCH (09:00)
[2022-08-24] MEDS ORDERED: Carvedilol 25 MG TAB PO SCH (09:00)
[2022-08-24] MEDS ORDERED: Aspirin 81 mg Enteric Coated Tablet PO SCH (09:00)
[2022-08-24] MEDS ORDERED: Cyanocobalamin (Vitamin B-12) 1,000 MCG TAB PO SCH (09:00)
[2022-08-24] MEDS ORDERED: Dorzolamide HCl 2% Ophth Soln 10 ml Bottle EA EYE SCH (09:00)
[2022-08-24] MEDS ORDERED: Cholecalciferol 1,000 UNITS (25 MCG) TAB PO SCH (09:00)
[2022-08-24] MEDS ORDERED: Sevelamer Carbonate 800 MG TAB PO SCH (09:00)
[2022-08-24] MEDS ORDERED: Lantus 1000 UNITS/10 ML VIAL SC SCH (09:00)
[2022-08-24] MEDS ORDERED: Folic Acid/Vit B Comp W-C PO SCH (09:00)
[2022-08-24] MEDS ORDERED: Timolol 0.5% Ophth Soln 5 ml Bottle EA EYE SCH (09:00)
[2022-08-24] MEDS ORDERED: Heparin 5,000 UNITS/ML VIAL SC SCH (09:00)
[2022-08-24] MEDS ORDERED: Brimonidine Tartrate 0.2% Ophth Soln 5 ml Bottle EA EYE SCH (09:00)
[2022-08-24] MEDS ORDERED: Clopidogrel Bisulfate 75 MG TAB PO SCH (09:00)
[2022-08-24] MEDS ORDERED: hydrALAZINE 25 MG TAB ONE (09:19)
[2022-08-24 09:47] VITALS: BP 148/75
[2022-08-24] MEDS ORDERED: Terazosin HCl 1 MG CAP PO SCH (21:00)
[2022-08-24] MEDS ORDERED: Latanoprost 0.005% Ophth Soln 2.5 ml Bottle EA EYE SCH (21:00)
[2022-08-24] MEDS ORDERED: Atorvastatin Calcium 20 MG TAB PO SCH (21:00)
== END 2022-08-24 15:03 | disposition home or self-care (01) ==
LOC: SUATTDRO 00:41 → CSHERS 00:41 → CSHERHOLD 09:05 → INTOOBSV 09:05
PROVIDERS: ADMIT Student in an Organized Health Care Education/Training Program; ATTEND Student in an Organized Health Care Education/Training Program
DX: R06.02 Shortness of breath (principal); I13.2 Hypertensive heart and chronic kidney disease with heart failure and with stage 5 chronic kidney disease, or end stage renal disease; I50.32 Chronic diastolic (congestive) heart failure; N18.6 End stage renal disease; E11.22 Type 2 diabetes mellitus with diabetic chronic kidney disease; E11.40 Type 2 diabetes mellitus with diabetic neuropathy, unspecified; D63.1 Anemia in chronic kidney disease; D53.9 Nutritional anemia, unspecified; E78.5 Hyperlipidemia, unspecified; I73.9 Peripheral vascular disease, unspecified; K21.9 Gastro-esophageal reflux disease without esophagitis; F03.90 Unspecified dementia, unspecified severity, without behavioral disturbance, psychotic disturbance, mood disturbance, and anxiety; H40.9 Unspecified glaucoma; Z99.2 Dependence on renal dialysis; Z87.891 Personal history of nicotine dependence; Z79.82 Long term (current) use of aspirin; Z79.899 Other long term (current) drug therapy; Z79.4 Long term (current) use of insulin; K59.00 Constipation, unspecified
CPT/HCPCS: 71045; 80053; 82962; 84484 ×2; 85025; 93005; 93306; 96372; 99285; G0378; 36415; 36416; J1644; J1815

== ENCOUNTER 2022-11-11 18:22 | Emergency (ER) | payer MEDICARE ==
[2022-11-11 19:05] LABS: #Basophils 0.1 10x3/uL (0.0-0.2); #Eosinphils 0.3 10x3/uL (0.0-0.5); #Monocytes 0.4 10x3/uL (0.0-1.1); #Neutrophils 3.5 10x3/uL (1.5-8.4); %Basophils 0.9 % (0.0-2.0); %Eosinophils 5.7 % (0.0-6.0); %Lymphocytes 26.1 % (18.0-47.0); %Monocytes 7.1 % (0.0-10.0); Hemoglobin 10.7 g/dL (13.5-17.5); Mean Corpuscular HGB CONC 32.6 g/dL (32.0-36.0); Mean Corpuscular Hemoglobin 31.2 pg (27.0-33.0); Mean Corpuscular Volume 95.6 fl (81.2-95.1); Mean Platelet Volume 9.4 fl (7.4-10.4); Platelet Count 160 10x3/uL (150-450); RBC Distribution Width 14.9 % (11.5-14.5); Red Blood Cell (RBC) Count 3.43 10x6/uL (4.32-5.72); White Blood Cell (WBC) Count 5.8 10x3/uL (3.5-10.5)
[2022-11-11 19:17] LABS: INR-International Normal Ratio 1.6; PTT 37.9 sec (22.0-33.0); Prothrombin Time 16.7 sec (9.5-12.1)
[2022-11-11 19:20] LABS: ALT (SGPT) Less than 6 U/L (8-55); AST (SGOT) 21 U/L (5-34); Albumin 3.9 g/dL (3.4-4.8); Alkaline Phosphatase 70 U/L (40-110); Anion Gap 22 mmol/L (10-20); BUN (Urea Nitrogen) 73 mg/dL (8.4-25.7); Bilirubin, Total 0.7 mg/dL (0.2-1.2); Calc. Creatinine Clearance 0 mL/min (70-130); Calcium 7.9 mg/dL (7.8-10.44); Carbon Dioxide 21 mmol/L (23-31); Chloride 96 mmol/L (98-107); Estimated GFR 3; Globulin 2.9 g/dL (2.4-3.5); Glucose 152 mg/dL (83-110); Potassium 4.1 mmol/L (3.5-5.1); Protein, Total 6.8 g/dL (5.8-8.1); Sodium 135 mmol/L (136-145)
== END 2022-11-11 21:55 | disposition home or self-care (01) ==
LOC: CSHERS 18:22
DX: T82.590A Other mechanical complication of surgically created arteriovenous fistula, initial encounter (principal); E78.00 Pure hypercholesterolemia, unspecified; I11.0 Hypertensive heart disease with heart failure; I50.9 Heart failure, unspecified; E11.9 Type 2 diabetes mellitus without complications; F17.200 Nicotine dependence, unspecified, uncomplicated
CPT/HCPCS: 80053; 85025; 85610; 85730; 99284

== ENCOUNTER 2023-06-13 10:01 | Outpatient (CLI) | payer MEDICARE | END 2023-06-13 10:02 | disposition home or self-care (01) | LOC: CSHRAD 10:01 | PROVIDERS: ATTEND Internal Medicine Nephrology | DX: M25.511 Pain in right shoulder (principal) ==

== ENCOUNTER 2024-01-19 10:18 | Emergency (ER) | payer MEDICARE ==
[2024-01-19 10:53] LABS: #Basophils 0.05 10x3/uL (0.0-0.2); #Eosinphils 0.07 10x3/uL (0.0-0.5); #Monocytes 0.62 10x3/uL (0.0-1.1); #Neutrophils 15.81 10x3/uL (1.5-8.4); %Basophils 0.3 % (0.0-2.0); %Eosinophils 0.4 % (0.0-6.0); %Lymphocytes 5.1 % (18.0-47.0); %Monocytes 3.5 % (0.0-10.0); %Neutrophils 90.2 % (40.0-75.0); Hematocrit 30.5 % (38.8-50.0); Hemoglobin 9.8 g/dL (13.5-17.5); Mean Corpuscular HGB CONC 32.1 g/dL (32.0-36.0); Mean Corpuscular Hemoglobin 30.7 pg (27.0-33.0); Mean Corpuscular Volume 95.6 fL (81.2-95.1); Mean Platelet Volume 9.8 fL (7.4-10.4); Platelet Count 194 10x3/uL (150-450); RBC Distribution Width 14.5 % (11.5-14.5); Red Blood Cell (RBC) Count 3.19 10x6/uL (4.32-5.72); White Blood Cell (WBC) Count 17.5 10x3/uL (3.5-10.5)
[2024-01-19 11:07] LABS: PTT 29.6 sec (22.0-33.0); Prothrombin Time 10.5 sec (9.5-12.1)
[2024-01-19 11:08] LABS: Influenza A by NAA Not Detected (NotDetected); Influenza B by NAA Not Detected (NotDetected); SARS-CoV-2 NAA Rapid Test Not Detected (NotDetected)
[2024-01-19 11:17] LABS: ALT (SGPT) 9 U/L (8-55); AST (SGOT) 15 U/L (5-34); Albumin 3.5 g/dL (3.4-4.8); Alkaline Phosphatase 73 U/L (40-110); Anion Gap 19 mmol/L (10-20); BUN (Urea Nitrogen) 20 mg/dL (8.4-25.7); Bilirubin, Total 0.9 mg/dL (0.2-1.2); Calc. Creatinine Clearance 0 mL/min (70-130); Calcium 9.3 mg/dL (7.8-10.44); Carbon Dioxide 28 mmol/L (23-31); Chloride 93 mmol/L (98-107); Estimated GFR 7; Globulin 3.3 g/dL (2.4-3.5); Glucose 125 mg/dL (83-110); Potassium 3.6 mmol/L (3.5-5.1); Protein, Total 6.8 g/dL (5.8-8.1); Sodium 136 mmol/L (136-145)
[2024-01-19 11:17] LABS: Troponin I 0.018 ng/mL (< 0.028)
[2024-01-19 11:30] LABS: Critical Call Chemistry ERS.CH3@1125; Phosphorus 1.4 mg/dL (2.3-4.7)
[2024-01-19] MEDS ORDERED: Vancomycin 1 GM VIAL ONE ×2 (11:30→12:20)
[2024-01-19] MEDS ORDERED: Cefepime 2 GM VIAL ONE (11:30)
== END 2024-01-19 17:07 | disposition admitted as inpatient to this hospital (09) ==
LOC: CSHERS 10:18
DX: R41.82 Altered mental status, unspecified (principal); A41.9 Sepsis, unspecified organism; E11.22 Type 2 diabetes mellitus with diabetic chronic kidney disease; I13.2 Hypertensive heart and chronic kidney disease with heart failure and with stage 5 chronic kidney disease, or end stage renal disease; I50.9 Heart failure, unspecified; N18.6 End stage renal disease; E78.00 Pure hypercholesterolemia, unspecified; F17.210 Nicotine dependence, cigarettes, uncomplicated; Z99.2 Dependence on renal dialysis
CPT/HCPCS: 0240U; 71045; 80053; 83605; 83735; 84100; 84484; 85025; 85610; 85730; 87040; 87077; 87149 ×2; 87186; 93005; J0692; J3370; 36415; 96365; 96375

== ENCOUNTER 2024-03-04 13:33 | Outpatient (CLI) | payer MEDICARE | END 2024-03-04 13:34 | disposition home or self-care (01) | LOC: CSHULT 13:33 | PROVIDERS: ATTEND Internal Medicine Nephrology | DX: M79.89 Other specified soft tissue disorders (principal); I82.C11 Acute embolism and thrombosis of right internal jugular vein ==